=== PATIENT | male | born 1945 | race Caucasian/White ===

== ENCOUNTER 2020-04-30 11:02 | Outpatient (CLI) | payer MEDICARE, BC ==
[2020-04-30 20:52] LABS: SARS-CoV-2 PCR by NAA Not Detected (NotDetected)
== END 2020-04-30 11:03 | disposition home or self-care (01) ==
LOC: LABBT 11:02
PROVIDERS: ATTEND Otolaryngology Otolaryngic Allergy
DX: Z01.812 Encounter for preprocedural laboratory examination (principal); K21.9 Gastro-esophageal reflux disease without esophagitis; Z20.822 Contact with and (suspected) exposure to COVID-19
CPT/HCPCS: U0003; U0005; 87635

== ENCOUNTER 2020-05-03 12:54 | Outpatient (CLI) | payer MEDICARE, BC | END 2020-05-03 12:55 | disposition home or self-care (01) | LOC: RAD 12:54 | PROVIDERS: ATTEND Otolaryngology Otolaryngic Allergy | DX: K21.9 Gastro-esophageal reflux disease without esophagitis (principal); R13.10 Dysphagia, unspecified; K44.9 Diaphragmatic hernia without obstruction or gangrene | CPT/HCPCS: 74220; 74230 ==

== ENCOUNTER 2022-05-01 12:15 | Inpatient (IN) | payer MEDICARE, BC ==
[2022-05-01 12:44] LABS: #Basophils 0.1 thou/uL (0.0-0.2); #Eosinphils 0.1 thou/uL (0.0-0.7); #Lymphocytes 1.5 thou/uL (1.20-3.40); #Monocytes 0.5 thou/uL (0.11-0.59); #Neutrophils 3.6 thou/uL (1.40-6.50); %Basophils 0.9 % (0.0-1.0); %Lymphocytes 25.2 % (21.0-51.0); %Monocytes 8.6 % (0.0-10.0); %Neutrophils 63.2 % (42.0-75.0); Hemoglobin 13.9 g/dL (14.0-18.0); Mean Corpuscular HGB CONC 34.2 g/dL (32.0-36.0); Mean Corpuscular Hemoglobin 31.2 pg (27.0-31.0); Mean Corpuscular Volume 91.3 fl (78.0-98.0); Mean Platelet Volume 8.3 fL (7.4-10.4); Platelet Count 191 10x3/uL (130-400); Red Blood Cell (RBC) Count 4.46 mill/uL (4.70-6.10); White Blood Cell (WBC) Count 5.8 10x3/uL (4.8-10.8)
[2022-05-01 12:51] LABS: PTT 29.3 sec (22.9-36.1); Prothrombin Time 13.1 sec (12.0-14.7)
[2022-05-01 12:54] LABS: CK (CPK) 63 U/L (30-200); CRP (Inflammatory) Less than 0.50 mg/dL (= or < 0.5)
[2022-05-01 12:55] LABS: ALT (SGPT) 10 U/L (8-55); AST (SGOT) 13 U/L (5-34); Acetaminophen Less than 10.0 mcg/mL (10.0-30.0); Alcohol Less than 10 mg/dL (Less than 10); Alkaline Phosphatase 69 U/L (40-110); Anion Gap 16 mmol/L (10-20); BUN (Urea Nitrogen) 16 mg/dL (8.4-25.7); Bilirubin, Total 0.6 mg/dL (0.2-1.2); Calc. Creatinine Clearance 0 mL/min (70-130); Calcium 9.1 mg/dL (7.8-10.44); Carbon Dioxide 23 mmol/L (23-31); Chloride 103 mmol/L (98-107); Estimated GFR 48; Globulin 3.2 g/dL (2.4-3.5); Glucose 147 mg/dL (83-110); Potassium 4.3 mmol/L (3.5-5.1); Protein, Total 7.2 g/dL (5.8-8.1); Salicylate Less than 8.0 mg/dL (15.0-30.0); Sodium 138 mmol/L (136-145)
[2022-05-01] MEDS ORDERED: hydrALAZINE 20 MG/ML VIAL ONE (13:07)
[2022-05-01] MEDS ORDERED: Nitroglycerin 2% Ointment 1 INCH/1 GM Packet ONE (13:07)
[2022-05-01] MEDS ORDERED: HumaLOG 300 UNITS/3 ML VIAL SC PRN (14:08)
[2022-05-01] MEDS ORDERED: Dextrose 50% Abboject 50 ML SYRINGE SLOW IVP PRN (14:08)
[2022-05-01] MEDS ORDERED: Dextrose 5% in Water 1,000 ML IV PRN (14:08)
[2022-05-01] MEDS ORDERED: Aspirin 325 MG TAB ONE (14:28)
[2022-05-01 14:39] LABS: Hemoglobin A1c 7.1 % (4.0-6.0)
[2022-05-01 15:18] LABS: Bilirubin Negative (Negative); Blood, Urine Negative (Negative); Clarity Clear (Clear); Glucose, Urine (Dipstick) 70 mg/dL (Negative); Ketone, Urine Negative (Negative); Leukocyte Negative Leu/uL (Negative); Nitrite Negative (Negative); Protein, Urine (Dipstick) Negative (Neg-Trace); Specific Gravity, Urine 1.041 (1.002-1.036); Urobilinogen Normal mg/dL (Less than 2)
[2022-05-01] MEDS ORDERED: Iopamidol-370 76% 500 ML 1 ML ONE (15:18)
[2022-05-01 15:24] LABS: Amphetamine Not Detected (NotDetected); Barbiturates Screen Not Detected (NotDetected); Benzodiazepine Screen Not Detected (NotDetected); Cocaine Metabolite Screen Not Detected (NotDetected); Methadone Not Detected (NotDetected); Methamphetamine Not Detected (NotDetected); Opiate Screen Not Detected (NotDetected); Oxycodone Screen Not Detected (NotDetected); Phencyclidine (PCP) Not Detected (NotDetected); THC/Cannabinoid Screen Not Detected (NotDetected); Tricyclic Screen Not Detected (NotDetected)
[2022-05-02 05:42] LABS: #Monocytes 0.7 thou/uL (0.11-0.59); #Neutrophils 6.2 thou/uL (1.40-6.50); %Basophils 0.6 % (0.0-1.0); %Eosinophils 0.3 % (0.0-10.0); %Lymphocytes 12.3 % (21.0-51.0); %Neutrophils 77.8 % (42.0-75.0); Hemoglobin 13.2 g/dL (14.0-18.0); Mean Corpuscular HGB CONC 33.7 g/dL (32.0-36.0); Mean Corpuscular Hemoglobin 30.7 pg (27.0-31.0); Mean Corpuscular Volume 91.3 fl (78.0-98.0); Mean Platelet Volume 8.5 fL (7.4-10.4); Platelet Count 200 10x3/uL (130-400); Red Blood Cell (RBC) Count 4.28 mill/uL (4.70-6.10)
[2022-05-02 06:03] LABS: Anion Gap 16 mmol/L (10-20); BUN (Urea Nitrogen) 16 mg/dL (8.4-25.7); Calc. Creatinine Clearance 0 mL/min (70-130); Calcium 9.2 mg/dL (7.8-10.44); Carbon Dioxide 19 mmol/L (23-31); Cardiac Risk 6.2 (Less than 4.5); Chloride 104 mmol/L (98-107); Cholesterol 223 mg/dl (< 200 Desired); Estimated GFR 63; Glucose 177 mg/dL (83-110); HDL Cholesterol 36 mg/dL (>60 Neg Risk); LDL Cholesterol, Calculated 158 mg/dL; Sodium 135 mmol/L (136-145); Triglycerides 145 mg/dL (Less than 150)
[2022-05-02 07:34] LABS: SARS-CoV-2 NAA Rapid Test Not Detected (NotDetected)
[2022-05-02] MEDS ORDERED: Aspirin 81 mg Enteric Coated Tablet PO SCH (09:00)
[2022-05-02 09:35] VITALS: BMI 23.7
[2022-05-02] MEDS: Dextrose 5 % And 0.9 % NaCl 1,000 ML IV SCH (13:38)
[2022-05-02 20:07] LABS: INR-International Normal Ratio 1.1; Prothrombin Time 14.6 sec (12.0-14.7)
[2022-05-02 20:08] LABS: PTT 30.7 sec (22.9-36.1)
[2022-05-02] MEDS: Atorvastatin Calcium 40 MG TAB PO SCH (20:23)
[2022-05-03 05:36] LABS: #Eosinphils 0.1 thou/uL (0.0-0.7); #Lymphocytes 1.4 thou/uL (1.20-3.40); #Neutrophils 4.8 thou/uL (1.40-6.50); %Basophils 0.3 % (0.0-1.0); %Eosinophils 1.3 % (0.0-10.0); %Lymphocytes 19.2 % (21.0-51.0); %Monocytes 13.1 % (0.0-10.0); %Neutrophils 66.1 % (42.0-75.0); Hemoglobin 13.3 g/dL (14.0-18.0); Mean Corpuscular HGB CONC 33.8 g/dL (32.0-36.0); Mean Corpuscular Hemoglobin 30.9 pg (27.0-31.0); Mean Corpuscular Volume 91.4 fl (78.0-98.0); Mean Platelet Volume 8.4 fL (7.4-10.4); Platelet Count 194 10x3/uL (130-400); White Blood Cell (WBC) Count 7.3 10x3/uL (4.8-10.8)
[2022-05-03 05:59] LABS: Anion Gap 14 mmol/L (10-20); BUN (Urea Nitrogen) 16 mg/dL (8.4-25.7); Calc. Creatinine Clearance 52 mL/min (70-130); Calcium 8.8 mg/dL (7.8-10.44); Carbon Dioxide 20 mmol/L (23-31); Chloride 107 mmol/L (98-107); Estimated GFR 70; Glucose 164 mg/dL (83-110); Sodium 137 mmol/L (136-145)
[2022-05-03] MEDS ORDERED: Aspirin 300 MG Suppository PR SCH (09:00)
[2022-05-03] MEDS: Dextrose 5 % And 0.9 % NaCl 1,000 ML IV SCH (10:12)
[2022-05-03] MEDS: HumaLOG 300 UNITS/3 ML VIAL SC PRN (11:29)
[2022-05-03] MEDS: Atorvastatin Calcium 40 MG TAB PO SCH (20:24)
[2022-05-03] MEDS: hydrALAZINE 20 MG/ML VIAL SLOW IVP PRN (21:15)
[2022-05-04] MEDS: Dextrose 5 % And 0.9 % NaCl 1,000 ML IV SCH (02:22)
[2022-05-04 05:29] LABS: #Eosinphils 0.2 thou/uL (0.0-0.7); #Lymphocytes 1.5 thou/uL (1.20-3.40); #Monocytes 0.9 thou/uL (0.11-0.59); #Neutrophils 4.5 thou/uL (1.40-6.50); %Basophils 0.5 % (0.0-1.0); %Eosinophils 2.3 % (0.0-10.0); %Lymphocytes 21.3 % (21.0-51.0); %Monocytes 12.4 % (0.0-10.0); %Neutrophils 63.5 % (42.0-75.0); Hemoglobin 13.2 g/dL (14.0-18.0); Mean Corpuscular HGB CONC 32.4 g/dL (32.0-36.0); Mean Corpuscular Volume 92.4 fl (78.0-98.0); Mean Platelet Volume 8.1 fL (7.4-10.4); Platelet Count 185 10x3/uL (130-400); RBC Distribution Width 12.1 % (11.5-14.5); Red Blood Cell (RBC) Count 4.39 mill/uL (4.70-6.10)
[2022-05-04 06:07] LABS: Anion Gap 13 mmol/L (10-20); BUN (Urea Nitrogen) 14 mg/dL (8.4-25.7); Calc. Creatinine Clearance 59 mL/min (70-130); Calcium 8.6 mg/dL (7.8-10.44); Carbon Dioxide 20 mmol/L (23-31); Chloride 109 mmol/L (98-107); Estimated GFR 80; Glucose 152 mg/dL (83-110); Potassium 3.6 mmol/L (3.5-5.1); Sodium 138 mmol/L (136-145)
[2022-05-04] MEDS: hydrALAZINE 20 MG/ML VIAL SLOW IVP PRN ×2 (08:49→18:11)
[2022-05-04] MEDS ORDERED: Aspirin 300 MG Suppository PR SCH (09:00)
[2022-05-04] MEDS ORDERED: Aspirin 81 mg Enteric Coated Tablet PER TUBE SCH (09:00)
[2022-05-04] MEDS: D5W-AA 4.25% with LYTES 1,000 ML IV SCH (12:50)
[2022-05-04] MEDS: Atorvastatin Calcium 40 MG TAB PO SCH (21:18)
[2022-05-05] MEDS: hydrALAZINE 20 MG/ML VIAL SLOW IVP PRN ×3 (04:30→16:50)
[2022-05-05 05:29] LABS: #Eosinphils 0.1 thou/uL (0.0-0.7); #Lymphocytes 0.5 thou/uL (1.20-3.40); #Monocytes 0.6 thou/uL (0.11-0.59); #Neutrophils 4.9 thou/uL (1.40-6.50); %Lymphocytes 7.7 % (21.0-51.0); %Monocytes 10.2 % (0.0-10.0); %Neutrophils 81.1 % (42.0-75.0); Hemoglobin 14.2 g/dL (14.0-18.0); Mean Corpuscular HGB CONC 33.7 g/dL (32.0-36.0); Mean Corpuscular Hemoglobin 30.6 pg (27.0-31.0); Mean Corpuscular Volume 90.9 fl (78.0-98.0); Mean Platelet Volume 8.3 fL (7.4-10.4); Platelet Count 201 10x3/uL (130-400); RBC Distribution Width 11.9 % (11.5-14.5); Red Blood Cell (RBC) Count 4.62 mill/uL (4.70-6.10)
[2022-05-05 05:49] LABS: Anion Gap 14 mmol/L (10-20); BUN (Urea Nitrogen) 18 mg/dL (8.4-25.7); Calc. Creatinine Clearance 61 mL/min (70-130); Calcium 9.1 mg/dL (7.8-10.44); Carbon Dioxide 21 mmol/L (23-31); Chloride 105 mmol/L (98-107); Estimated GFR 85; Glucose 182 mg/dL (83-110); Potassium 3.7 mmol/L (3.5-5.1); Sodium 136 mmol/L (136-145)
[2022-05-05] MEDS: D5W-AA 4.25% with LYTES 1,000 ML IV SCH (09:37)
[2022-05-05] MEDS: Aspirin Chewable 81 MG TAB PER TUBE SCH (09:53)
[2022-05-05] MEDS ORDERED: cloNIDine 0.1mg/24 Hour PATCH TD SCH (11:22)
[2022-05-05] MEDS: HumaLOG 300 UNITS/3 ML VIAL SC PRN ×2 (12:27→18:04)
[2022-05-05 13:46] LABS: DRVVT Confirm 33.5; HEX PHOS LA Tube 1 42.9 SEC; HEX PHOS LA Tube 2 38.1 SEC; Hexagonal Phospholipid Neut 4.8 SEC (0-8.0)
[2022-05-05] MEDS ORDERED: Labetalol HCl 100 MG/20 ML VIAL SLOW IVP SCH (20:00)
[2022-05-05] MEDS: Acetaminophen 650 MG Suppository PR PRN (20:00)
[2022-05-05] MEDS: Atorvastatin Calcium 40 MG TAB PO SCH (20:20)
[2022-05-05] MEDS ORDERED: Scopolamine 1.5 mg/72 hour Patch TD PRN (20:43)
[2022-05-06] MEDS ORDERED: Labetalol HCl 100 MG/20 ML VIAL SLOW IVP SCH (00:15)
[2022-05-06] MEDS: Acetaminophen 650 MG Suppository PR PRN (04:45)
[2022-05-06] MEDS: D5W-AA 4.25% with LYTES 1,000 ML IV SCH (06:05)
[2022-05-06 06:29] LABS: #Lymphocytes 0.3 thou/uL (1.20-3.40); #Monocytes 0.6 thou/uL (0.11-0.59); #Neutrophils 3.2 thou/uL (1.40-6.50); %Eosinophils 0.2 % (0.0-10.0); %Lymphocytes 8.2 % (21.0-51.0); %Monocytes 13.8 % (0.0-10.0); %Neutrophils 77.9 % (42.0-75.0); Hemoglobin 13.2 g/dL (14.0-18.0); Mean Corpuscular HGB CONC 33.2 g/dL (32.0-36.0); Mean Corpuscular Hemoglobin 30.3 pg (27.0-31.0); Mean Corpuscular Volume 91.3 fl (78.0-98.0); Mean Platelet Volume 8.2 fL (7.4-10.4); Platelet Count 189 10x3/uL (130-400); RBC Distribution Width 11.9 % (11.5-14.5); Red Blood Cell (RBC) Count 4.35 mill/uL (4.70-6.10); White Blood Cell (WBC) Count 4.1 10x3/uL (4.8-10.8)
[2022-05-06 06:50] LABS: Anion Gap 14 mmol/L (10-20); BUN (Urea Nitrogen) 23 mg/dL (8.4-25.7); Calc. Creatinine Clearance 57 mL/min (70-130); Calcium 8.7 mg/dL (7.8-10.44); Carbon Dioxide 20 mmol/L (23-31); Chloride 103 mmol/L (98-107); Estimated GFR 77; Glucose 189 mg/dL (83-110); Potassium 3.8 mmol/L (3.5-5.1); Sodium 133 mmol/L (136-145)
[2022-05-06] MEDS: Aspirin Chewable 81 MG TAB PER TUBE SCH (08:49)
[2022-05-06] MEDS ORDERED: Aspirin 300 MG Suppository PR SCH (09:00)
[2022-05-06] MEDS: HumaLOG 300 UNITS/3 ML VIAL SC PRN (12:00)
[2022-05-06] MEDS: metroNIDAZOLE 500 MG in Premix Bag 1 BAG IVPB SCH ×2 (14:05→22:14)
[2022-05-06 14:52] LABS: Cardiolipin IgA Ab 6.6 APL-U/mL (<14 Negative); Cardiolipin IgG Ab 2.5 GPL-U/mL (<10 Negative); Cardiolipin IgM Ab 1.1 MPL-U/mL (<10 Negative); EliA APS New Method **** NEW METHOD ****; beta-2-Glycoprotein I IgA Ab 4.3 U/mL (<7 Negative); beta-2-Glycoprotein I IgG Ab 1.4 U/mL (<7 Negative)
[2022-05-06 14:55] LABS: beta-2-Glycoprotein I IgM Abs Less than 2.4 U/mL (<7 Negative)
[2022-05-06] MEDS: Atorvastatin Calcium 40 MG TAB PO SCH (22:12)
[2022-05-07] MEDS: D5W-AA 4.25% with LYTES 1,000 ML IV SCH (03:41)
[2022-05-07] MEDS: metroNIDAZOLE 500 MG in Premix Bag 1 BAG IVPB SCH ×3 (06:01→20:53)
[2022-05-07] MEDS ORDERED: Ketamine 50 MG/ML (10ML VIAL) ONE (09:25)
[2022-05-07] MEDS ORDERED: CEFAZOLIN 2 GM VIAL ONE (09:34)
[2022-05-07] MEDS ORDERED: Sodium Chloride 0.9% 100 ML ONE (09:34)
[2022-05-07] MEDS ORDERED: PROPOFOL 200 MG/20 ML VIAL ONE (09:45)
[2022-05-07] MEDS: Aspirin Chewable 81 MG TAB PER TUBE SCH (10:52)
[2022-05-07] MEDS ORDERED: Amlodipine 5 MG TAB PO SCH (17:00)
[2022-05-07] MEDS: Atorvastatin Calcium 40 MG TAB PO SCH (20:53)
[2022-05-08] MEDS: metroNIDAZOLE 500 MG in Premix Bag 1 BAG IVPB SCH ×3 (04:57→21:04)
[2022-05-08 05:59] LABS: #Eosinphils 0.1 thou/uL (0.0-0.7); #Lymphocytes 0.9 thou/uL (1.20-3.40); #Monocytes 0.6 thou/uL (0.11-0.59); %Basophils 0.3 % (0.0-1.0); %Eosinophils 2.1 % (0.0-10.0); %Lymphocytes 19.7 % (21.0-51.0); %Monocytes 13.5 % (0.0-10.0); %Neutrophils 64.5 % (42.0-75.0); Hemoglobin 12.5 g/dL (14.0-18.0); Mean Corpuscular HGB CONC 33.1 g/dL (32.0-36.0); Mean Corpuscular Hemoglobin 30.7 pg (27.0-31.0); Mean Corpuscular Volume 92.7 fl (78.0-98.0); Mean Platelet Volume 8.6 fL (7.4-10.4); Platelet Count 175 10x3/uL (130-400); RBC Distribution Width 11.9 % (11.5-14.5); Red Blood Cell (RBC) Count 4.08 mill/uL (4.70-6.10); White Blood Cell (WBC) Count 4.6 10x3/uL (4.8-10.8)
[2022-05-08 06:27] LABS: Anion Gap 13 mmol/L (10-20); BUN (Urea Nitrogen) 28 mg/dL (8.4-25.7); Calc. Creatinine Clearance 59 mL/min (70-130); Calcium 8.5 mg/dL (7.8-10.44); Carbon Dioxide 21 mmol/L (23-31); Chloride 103 mmol/L (98-107); Estimated GFR 80; Glucose 154 mg/dL (83-110); Potassium 3.9 mmol/L (3.5-5.1); Sodium 133 mmol/L (136-145)
[2022-05-08] MEDS: Lansoprazole 15 MG/5 ML (BATCHED)UDCUP PO SCH (08:53)
[2022-05-08] MEDS: Amlodipine 5 MG TAB PO SCH (08:53)
[2022-05-08] MEDS: Aspirin Chewable 81 MG TAB PER TUBE SCH (08:54)
[2022-05-08] MEDS: Finasteride 5 MG TAB PO SCH (08:54)
[2022-05-08] MEDS ORDERED: Lansoprazole 15 MG/5 ML (BATCHED)UDCUP PER TUBE SCH (09:00)
[2022-05-08] MEDS ORDERED: Tamsulosin HCl 0.4 MG CAP PO SCH (09:00)
[2022-05-08] MEDS: Atorvastatin Calcium 40 MG TAB PO SCH (20:31)
[2022-05-09] MEDS: metroNIDAZOLE 500 MG in Premix Bag 1 BAG IVPB SCH ×3 (05:10→21:15)
[2022-05-09] MEDS: HumaLOG 300 UNITS/3 ML VIAL SC PRN ×3 (06:21→18:33)
[2022-05-09] MEDS: Amlodipine 5 MG TAB PO SCH (09:06)
[2022-05-09] MEDS: Finasteride 5 MG TAB PO SCH (09:06)
[2022-05-09] MEDS: Aspirin Chewable 81 MG TAB PER TUBE SCH (09:06)
[2022-05-09] MEDS: Lansoprazole 15 MG/5 ML (BATCHED)UDCUP PO SCH (09:06)
[2022-05-09] MEDS: Atorvastatin Calcium 40 MG TAB PO SCH (21:15)
[2022-05-10] MEDS: metroNIDAZOLE 500 MG in Premix Bag 1 BAG IVPB SCH ×3 (05:10→21:42)
[2022-05-10] MEDS: HumaLOG 300 UNITS/3 ML VIAL SC PRN ×3 (06:14→18:22)
[2022-05-10] MEDS: Finasteride 5 MG TAB PO SCH (09:29)
[2022-05-10] MEDS: Aspirin Chewable 81 MG TAB PER TUBE SCH (09:29)
[2022-05-10] MEDS: Amlodipine 5 MG TAB PO SCH (09:29)
[2022-05-10] MEDS: Lansoprazole 15 MG/5 ML (BATCHED)UDCUP PO SCH (09:33)
[2022-05-10] MEDS: Atorvastatin Calcium 40 MG TAB PO SCH (21:42)
[2022-05-11] MEDS: metroNIDAZOLE 500 MG in Premix Bag 1 BAG IVPB SCH ×2 (06:37→14:56)
[2022-05-11] MEDS: HumaLOG 300 UNITS/3 ML VIAL SC PRN ×3 (06:38→18:27)
[2022-05-11] MEDS: Aspirin Chewable 81 MG TAB PER TUBE SCH (10:03)
[2022-05-11] MEDS: Finasteride 5 MG TAB PO SCH (10:03)
[2022-05-11] MEDS: Amlodipine 5 MG TAB PO SCH (10:03)
[2022-05-11] MEDS: Lansoprazole 15 MG/5 ML (BATCHED)UDCUP PO SCH (10:03)
[2022-05-11 15:54] VITALS: BP 145/76; TEMP 97
== END 2022-05-11 19:29 | DRG 64 ==
LOC: ERS 12:15 → ERHOLD 13:44 → NEURO 20:15
PROVIDERS: ADMIT Hospitalist; ATTEND Hospitalist
PROC: 0DB78ZX Excision of Stomach, Pylorus, Via Natural or Artificial Opening Endoscopic, Diagnostic (ICD-10-PCS; principal; 2022-05-07)
PROC: 0DH63UZ Insertion of Feeding Device into Stomach, Percutaneous Approach (ICD-10-PCS; 2022-05-07)
DX: I63.512 Cerebral infarction due to unspecified occlusion or stenosis of left middle cerebral artery (principal); R29.712 NIHSS score 12; U07.1 COVID-19; J69.0 Pneumonitis due to inhalation of food and vomit; G81.91 Hemiplegia, unspecified affecting right dominant side; I69.354 Hemiplegia and hemiparesis following cerebral infarction affecting left non-dominant side; R47.01 Aphasia; R13.12 Dysphagia, oropharyngeal phase; K44.9 Diaphragmatic hernia without obstruction or gangrene; K20.90 Esophagitis, unspecified without bleeding; K29.70 Gastritis, unspecified, without bleeding; E78.5 Hyperlipidemia, unspecified; E11.9 Type 2 diabetes mellitus without complications; I10 Essential (primary) hypertension; R29.810 Facial weakness; R47.81 Slurred speech; R47.1 Dysarthria and anarthria; Z91.14 Patient's other noncompliance with medication regimen; Z88.1 Allergy status to other antibiotic agents; Z88.2 Allergy status to sulfonamides; Z88.8 Allergy status to other drugs, medicaments and biological substances; Z83.3 Family history of diabetes mellitus; Z82.49 Family history of ischemic heart disease and other diseases of the circulatory system; Z98.890 Other specified postprocedural states; Z79.899 Other long term (current) drug therapy; Z79.82 Long term (current) use of aspirin
CPT/HCPCS: 36415; 36416; 70450; 70496; 70498; 70551; 71045; 74230; 80048; 80053; 80061; 80306; 80307; 81003; 81240; 81241; 82550; 83036; 83605; 84443; 84484; 85025; 85240; 85250; 85300; 85303; 85305; 85598; 85610; 85613; 85730; 86140; 86146; 86147; 87811; 88305; 88342; 93005; 93306; 94760; 96374; J0360; J1815; J1956; J2704; J3490; J7042; Q9967; U0003; U0005

== ENCOUNTER 2022-06-05 11:39 | Emergency (ER) | payer MEDICARE, BC ==
[2022-06-05 13:29] LABS: #Basophils 0.1 thou/uL (0.0-0.2); #Eosinphils 0.2 thou/uL (0.0-0.7); #Monocytes 0.8 thou/uL (0.11-0.59); #Neutrophils 4.7 thou/uL (1.40-6.50); %Basophils 1.3 % (0.0-1.0); %Eosinophils 2.9 % (0.0-10.0); %Lymphocytes 25.6 % (21.0-51.0); %Monocytes 9.8 % (0.0-10.0); %Neutrophils 60.5 % (42.0-75.0); Mean Corpuscular HGB CONC 34.2 g/dL (32.0-36.0); Mean Corpuscular Hemoglobin 31.5 pg (27.0-31.0); Mean Platelet Volume 7.6 fL (7.4-10.4); Platelet Count 184 10x3/uL (130-400); RBC Distribution Width 13.3 % (11.5-14.5); Red Blood Cell (RBC) Count 3.81 mill/uL (4.70-6.10); White Blood Cell (WBC) Count 7.8 10x3/uL (4.8-10.8)
[2022-06-05 14:08] LABS: ALT (SGPT) 14 U/L (8-55); AST (SGOT) 21 U/L (5-34); Albumin 3.8 g/dL (3.4-4.8); Alkaline Phosphatase 59 U/L (40-110); Anion Gap 19 mmol/L (10-20); BUN (Urea Nitrogen) 25 mg/dL (8.4-25.7); Bilirubin, Total 0.5 mg/dL (0.2-1.2); Calc. Creatinine Clearance 0 mL/min (70-130); Calcium 9.2 mg/dL (7.8-10.44); Carbon Dioxide 18 mmol/L (23-31); Chloride 100 mmol/L (98-107); Estimated GFR 88; Globulin 3.6 g/dL (2.4-3.5); Glucose 117 mg/dL (83-110); Lipase 34 U/L (8-78); Potassium 4.9 mmol/L (3.5-5.1); Protein, Total 7.4 g/dL (5.8-8.1); Sodium 132 mmol/L (136-145)
== END 2022-06-05 15:11 | disposition home or self-care (01) ==
LOC: ERS 11:39
DX: K59.00 Constipation, unspecified (principal); E11.9 Type 2 diabetes mellitus without complications; E78.00 Pure hypercholesterolemia, unspecified; I10 Essential (primary) hypertension
CPT/HCPCS: 36415; 74019; 80053; 83690; 85025; 96360

== ENCOUNTER 2022-08-02 12:46 | Inpatient (IN) | payer MEDICARE, BC ==
[~2022-08-02 12:46] MED LIST: Iopamidol-370 76% 500 ML MDV (1 ML CHARGE) ONE
[2022-08-02 13:11] LABS: #Basophils 0.1 thou/uL (0.0-0.2); #Lymphocytes 1.8 thou/uL (1.20-3.40); #Monocytes 0.9 thou/uL (0.11-0.59); #Neutrophils 4.1 thou/uL (1.40-6.50); %Basophils 0.7 % (0.0-1.0); %Eosinophils 22.5 % (0.0-10.0); %Lymphocytes 20.7 % (21.0-51.0); %Monocytes 10.3 % (0.0-10.0); %Neutrophils 45.8 % (42.0-75.0); Hemoglobin 12.3 g/dL (14.0-18.0); Mean Corpuscular HGB CONC 34.7 g/dL (32.0-36.0); Mean Corpuscular Hemoglobin 32.4 pg (27.0-31.0); Mean Corpuscular Volume 93.4 fl (78.0-98.0); Mean Platelet Volume 8.3 fL (7.4-10.4); Platelet Count 237 10x3/uL (130-400); RBC Distribution Width 13.5 % (11.5-14.5); Red Blood Cell (RBC) Count 3.79 mill/uL (4.70-6.10); White Blood Cell (WBC) Count 8.9 10x3/uL (4.8-10.8)
[2022-08-02 13:23] LABS: Prothrombin Time 13.4 sec (12.0-14.7)
[2022-08-02 13:32] LABS: ALT (SGPT) 10 U/L (8-55); AST (SGOT) 13 U/L (5-34); Albumin 3.9 g/dL (3.4-4.8); Alkaline Phosphatase 83 U/L (40-110); Anion Gap 19 mmol/L (10-20); BUN (Urea Nitrogen) 13 mg/dL (8.4-25.7); Bilirubin, Total 0.6 mg/dL (0.2-1.2); CK (CPK) 46 U/L (30-200); Calc. Creatinine Clearance 0 mL/min (70-130); Calcium 9.4 mg/dL (7.8-10.44); Carbon Dioxide 22 mmol/L (23-31); Chloride 102 mmol/L (98-107); Estimated GFR 88; Globulin 3.4 g/dL (2.4-3.5); Glucose 147 mg/dL (83-110); Potassium 4.1 mmol/L (3.5-5.1); Protein, Total 7.3 g/dL (5.8-8.1); Sodium 139 mmol/L (136-145)
[2022-08-02] MEDS ORDERED: Aspirin Chewable 81 MG TAB ONE (13:45)
[2022-08-02] MEDS ORDERED: Insulin Regular 300 UNITS/3 ML VIAL SC PRN (14:38)
[2022-08-02] MEDS ORDERED: hydrALAZINE 20 MG/ML VIAL SLOW IVP PRN (14:38)
[2022-08-02] MEDS ORDERED: Dextrose 50% Abboject 50 ML SYRINGE SLOW IVP PRN (14:44)
[2022-08-02] MEDS ORDERED: Dextrose 5% in Water 1,000 ML IV PRN (14:44)
[2022-08-02] MEDS ORDERED: Clopidogrel Bisulfate 300 MG TAB PO SCH (14:45)
[2022-08-02] MEDS ORDERED: Clopidogrel Bisulfate 300 MG TAB ONE (16:40)
[2022-08-02 19:44] LABS: Bilirubin Negative (Negative); Blood, Urine Negative (Negative); Clarity Clear (Clear); Glucose, Urine (Dipstick) Normal (Negative); Ketone, Urine Negative (Negative); Leukocyte Negative Leu/uL (Negative); Nitrite Negative (Negative); Protein, Urine (Dipstick) Negative (Neg-Trace); Urobilinogen Normal mg/dL (Less than 2)
[2022-08-02 19:46] LABS: Specific Gravity, Urine Greater than 1.060 (1.002-1.036)
[2022-08-02] MEDS: Ipratropium Bromide 0.06% Nasal Inhaler 15ml EA NARE SCH ×2 (23:17→23:18)
[2022-08-02] MEDS: Atorvastatin Calcium 40 MG TAB PO SCH (23:17)
[2022-08-02] MEDS: Carvedilol 6.25 MG TAB PO SCH (23:18)
[2022-08-03 05:45] LABS: #Basophils 0.1 thou/uL (0.0-0.2); #Lymphocytes 1.8 thou/uL (1.20-3.40); #Monocytes 0.8 thou/uL (0.11-0.59); #Neutrophils 3.4 thou/uL (1.40-6.50); %Basophils 0.7 % (0.0-1.0); %Eosinophils 24.7 % (0.0-10.0); %Lymphocytes 22.1 % (21.0-51.0); %Monocytes 9.5 % (0.0-10.0); %Neutrophils 42.9 % (42.0-75.0); Hemoglobin 11.5 g/dL (14.0-18.0); Mean Corpuscular HGB CONC 35.5 g/dL (32.0-36.0); Mean Corpuscular Hemoglobin 32.9 pg (27.0-31.0); Mean Corpuscular Volume 92.7 fl (78.0-98.0); Platelet Count 204 10x3/uL (130-400); RBC Distribution Width 13.3 % (11.5-14.5); Red Blood Cell (RBC) Count 3.51 mill/uL (4.70-6.10); White Blood Cell (WBC) Count 7.9 10x3/uL (4.8-10.8)
[2022-08-03 05:55] LABS: Anion Gap 15 mmol/L (10-20); BUN (Urea Nitrogen) 11 mg/dL (8.4-25.7); Calc. Creatinine Clearance 67 mL/min (70-130); Carbon Dioxide 26 mmol/L (23-31); Cardiac Risk 6.2 (Less than 4.5); Chloride 102 mmol/L (98-107); Cholesterol 130 mg/dl (< 200 Desired); Estimated GFR 89; Glucose 144 mg/dL (83-110); HDL Cholesterol 21 mg/dL (>60 Neg Risk); LDL Cholesterol, Calculated 77 mg/dL; Potassium 3.6 mmol/L (3.5-5.1); Sodium 139 mmol/L (136-145); Triglycerides 158 mg/dL (Less than 150)
[2022-08-03] MEDS ORDERED: Sodium Chloride 0.9% 1,000 ML IV SCH (11:00)
[2022-08-03] MEDS: Carvedilol 6.25 MG TAB PO SCH ×2 (15:57→22:00)
[2022-08-03] MEDS: Aspirin 81 mg Enteric Coated Tablet PO SCH (16:09)
[2022-08-03] MEDS: Clopidogrel Bisulfate 75 MG TAB PO SCH (16:09)
[2022-08-03] MEDS: Finasteride 5 MG TAB PO SCH (16:10)
[2022-08-03] MEDS: Tamsulosin HCl 0.4 MG CAP PO SCH (16:10)
[2022-08-03] MEDS: Oxybutynin ER 5 MG TAB PO SCH (18:56)
[2022-08-03] MEDS: Atorvastatin Calcium 40 MG TAB PO SCH (22:00)
[2022-08-03] MEDS: Ipratropium Bromide 0.06% Nasal Inhaler 15ml EA NARE SCH (22:00)
[2022-08-04 05:21] LABS: Hemoglobin 12.1 g/dL (14.0-18.0); Mean Corpuscular HGB CONC 34.1 g/dL (32.0-36.0); Mean Corpuscular Hemoglobin 31.4 pg (27.0-31.0); Mean Corpuscular Volume 92.1 fl (78.0-98.0); Mean Platelet Volume 7.7 fL (7.4-10.4); Platelet Count 221 10x3/uL (130-400); RBC Distribution Width 13.1 % (11.5-14.5); Red Blood Cell (RBC) Count 3.85 mill/uL (4.70-6.10); White Blood Cell (WBC) Count 7.5 10x3/uL (4.8-10.8)
[2022-08-04 05:39] LABS: ALT (SGPT) 8 U/L (8-55); AST (SGOT) 12 U/L (5-34); Albumin 3.6 g/dL (3.4-4.8); Alkaline Phosphatase 77 U/L (40-110); Anion Gap 16 mmol/L (10-20); BUN (Urea Nitrogen) 8 mg/dL (8.4-25.7); Bilirubin, Total 0.8 mg/dL (0.2-1.2); Calc. Creatinine Clearance 70 mL/min (70-130); Carbon Dioxide 23 mmol/L (23-31); Chloride 103 mmol/L (98-107); Estimated GFR 90; Glucose 161 mg/dL (83-110); Potassium 3.7 mmol/L (3.5-5.1); Protein, Total 6.6 g/dL (5.8-8.1); Sodium 138 mmol/L (136-145)
[2022-08-04] MEDS: Clopidogrel Bisulfate 75 MG TAB PO SCH ×2 (09:40→15:27)
[2022-08-04] MEDS: Oxybutynin ER 5 MG TAB PO SCH (15:27)
[2022-08-04] MEDS: Finasteride 5 MG TAB PO SCH (15:27)
[2022-08-04] MEDS: Carvedilol 6.25 MG TAB PO SCH ×2 (15:28→22:07)
[2022-08-04] MEDS: Aspirin 81 mg Enteric Coated Tablet PO SCH (15:28)
[2022-08-04] MEDS: Ipratropium Bromide 0.06% Nasal Inhaler 15ml EA NARE SCH ×3 (15:29→22:07)
[2022-08-04] MEDS: Tamsulosin HCl 0.4 MG CAP PO SCH (15:30)
[2022-08-04] MEDS: Atorvastatin Calcium 40 MG TAB PO SCH (22:06)
[2022-08-05 02:29] VITALS: BMI 23.0
[2022-08-05 05:45] LABS: Hemoglobin 12.9 g/dL (14.0-18.0); Mean Corpuscular HGB CONC 34.3 g/dL (32.0-36.0); Mean Corpuscular Hemoglobin 31.5 pg (27.0-31.0); Mean Corpuscular Volume 91.9 fl (78.0-98.0); Mean Platelet Volume 7.8 fL (7.4-10.4); Platelet Count 250 10x3/uL (130-400); RBC Distribution Width 13.1 % (11.5-14.5); White Blood Cell (WBC) Count 7.9 10x3/uL (4.8-10.8)
[2022-08-05 06:02] LABS: Albumin 3.6 g/dL (3.4-4.8); Alkaline Phosphatase 83 U/L (40-110); Anion Gap 15 mmol/L (10-20); BUN (Urea Nitrogen) 9 mg/dL (8.4-25.7); Bilirubin, Total 0.7 mg/dL (0.2-1.2); Calc. Creatinine Clearance 65 mL/min (70-130); Calcium 9.1 mg/dL (7.8-10.44); Carbon Dioxide 23 mmol/L (23-31); Chloride 103 mmol/L (98-107); Estimated GFR 88; Globulin 3.3 g/dL (2.4-3.5); Glucose 157 mg/dL (83-110); Potassium 3.8 mmol/L (3.5-5.1); Protein, Total 6.9 g/dL (5.8-8.1); Sodium 137 mmol/L (136-145)
[2022-08-05 06:03] LABS: ALT (SGPT) 8 U/L (8-55); AST (SGOT) 12 U/L (5-34)
[2022-08-05] MEDS ORDERED: Lidocaine 1% PF 5 ML VIAL ONE ×2 (08:30→08:31)
[2022-08-05] MEDS: Ipratropium Bromide 0.06% Nasal Inhaler 15ml EA NARE SCH (08:43)
[2022-08-05] MEDS: Carvedilol 6.25 MG TAB PO SCH (08:44)
[2022-08-05] MEDS: Aspirin 81 mg Enteric Coated Tablet PO SCH (08:44)
[2022-08-05] MEDS: Clopidogrel Bisulfate 75 MG TAB PO SCH (08:44)
[2022-08-05] MEDS: Finasteride 5 MG TAB PO SCH (08:44)
[2022-08-05] MEDS: Oxybutynin ER 5 MG TAB PO SCH (08:44)
[2022-08-05] MEDS: Tamsulosin HCl 0.4 MG CAP PO SCH (08:45)
[2022-08-05 16:14] VITALS: BP 176/89; TEMP 97.3
== END 2022-08-05 17:00 | disposition home or self-care (01) | DRG 41 ==
LOC: ERS 12:46 → ERHOLD 16:06 → NEURO 21:03 → OBSVTOIN 08-03 16:15
PROVIDERS: ADMIT Hospitalist; ATTEND Hospitalist
PROC: 0JH632Z Insertion of Monitoring Device into Chest Subcutaneous Tissue and Fascia, Percutaneous Approach (ICD-10-PCS; principal; 2022-08-05)
DX: I63.9 Cerebral infarction, unspecified (principal); I69.354 Hemiplegia and hemiparesis following cerebral infarction affecting left non-dominant side; R29.706 NIHSS score 6; E78.5 Hyperlipidemia, unspecified; I10 Essential (primary) hypertension; E11.65 Type 2 diabetes mellitus with hyperglycemia; R13.10 Dysphagia, unspecified; N40.0 Benign prostatic hyperplasia without lower urinary tract symptoms; Z93.1 Gastrostomy status; Z88.1 Allergy status to other antibiotic agents; Z88.2 Allergy status to sulfonamides; Z88.8 Allergy status to other drugs, medicaments and biological substances; Z79.899 Other long term (current) drug therapy; Z79.82 Long term (current) use of aspirin; Z79.84 Long term (current) use of oral hypoglycemic drugs
CPT/HCPCS: 33285; 36415; 36416; 70450; 70496; 70498; 70551; 71045; 74230; 80048; 80053; 80061; 81003; 82550; 84443; 84484; 85025; 85027; 93005; 94760; 95712; 95819; 95957; C1764; J1650; J7050; Q9967

== ENCOUNTER 2022-10-01 08:45 | Observation (INO) | payer MEDICARE, BC ==
[2022-10-01 09:25] LABS: #Eosinphils 0.3 thou/uL (0.0-0.7); #Monocytes 1.1 thou/uL (0.11-0.59); #Neutrophils 10.3 thou/uL (1.40-6.50); %Basophils 0.3 % (0.0-1.0); %Eosinophils 2.4 % (0.0-10.0); %Lymphocytes 5.8 % (21.0-51.0); %Monocytes 8.9 % (0.0-10.0); %Neutrophils 82.1 % (42.0-75.0); Hemoglobin 12.6 g/dL (14.0-18.0); Mean Corpuscular HGB CONC 32.6 g/dL (32.0-36.0); Mean Corpuscular Hemoglobin 29.7 pg (27.0-31.0); Mean Platelet Volume 10.6 fL (7.4-10.4); Platelet Count 159 10x3/uL (130-400); RBC Distribution Width 14.6 % (11.5-14.5); Red Blood Cell (RBC) Count 4.24 mill/uL (4.70-6.10); White Blood Cell (WBC) Count 12.6 10x3/uL (4.8-10.8)
[2022-10-01 09:38] LABS: Prothrombin Time 13.3 sec (12.0-14.7)
[2022-10-01 09:57] LABS: ALT (SGPT) 15 U/L (8-55); AST (SGOT) 20 U/L (5-34); Albumin 4.1 g/dL (3.4-4.8); Alkaline Phosphatase 73 U/L (40-110); Anion Gap 18 mmol/L (10-20); BUN (Urea Nitrogen) 24 mg/dL (8.4-25.7); Bilirubin, Total 0.7 mg/dL (0.2-1.2); Calc. Creatinine Clearance 0 mL/min (70-130); Calcium 9.7 mg/dL (7.8-10.44); Carbon Dioxide 24 mmol/L (23-31); Chloride 97 mmol/L (98-107); Estimated GFR 81; Globulin 3.5 g/dL (2.4-3.5); Glucose 171 mg/dL (83-110); Potassium 4.2 mmol/L (3.5-5.1); Protein, Total 7.6 g/dL (5.8-8.1); Sodium 135 mmol/L (136-145)
[2022-10-01] MEDS ORDERED: Glucagon 1 MG/ML KIT IM PRN (11:05)
[2022-10-01] MEDS ORDERED: Insulin Regular 300 UNITS/3 ML VIAL SC PRN ×2 (11:05)
[2022-10-01] MEDS ORDERED: Dextrose 5% in Water 1,000 ML IV PRN (11:05)
[2022-10-01] MEDS ORDERED: Dextrose 50% Abboject 50 ML SYRINGE SLOW IVP PRN (11:05)
[2022-10-01] MEDS ORDERED: hydrALAZINE 20 MG/ML VIAL SLOW IVP PRN (11:07)
[2022-10-01] MEDS ORDERED: Aspirin 81 mg Enteric Coated Tablet PO SCH (11:30)
[2022-10-01] MEDS ORDERED: Polyethylene Glycol 3350 17 GM Packet PO PRN (11:50)
[2022-10-01 12:07] LABS: Hemoglobin A1c 6.1 % (4.0-6.0)
[2022-10-01 12:24] LABS: Bacteria/HPF None Seen HPF (None Seen); Bilirubin Negative (Negative); Blood, Urine Negative (Negative); CAUTI Indications for Culture Alt mental st,lethar; Clarity Clear (Clear); Glucose, Urine (Dipstick) Normal (Negative); Ketone, Urine Trace mg/dL (Negative); Leukocyte Negative Leu/uL (Negative); Nitrite Negative (Negative); Protein, Urine (Dipstick) 20 mg/dL (Neg-Trace); Squamous Epithelial None Seen HPF (0-3); WBC/HPF 0-3 HPF (0-3); pH, Urine 7.5 (5.0-9.0)
[2022-10-01 12:26] LABS: Specific Gravity, Urine 1.053 (1.002-1.036)
[2022-10-01 12:28] LABS: Urine Culture Reflex No No
[2022-10-01] MEDS ORDERED: Iopamidol-370 76% 500 ML MDV (1 ML CHARGE) ONE (13:14)
[2022-10-01] MEDS ORDERED: Carvedilol 6.25 MG TAB PO SCH (17:00)
[2022-10-01 17:42] VITALS: BMI 21.5
[2022-10-01] MEDS ORDERED: Aspirin 300 MG Suppository PR SCH (20:30)
[2022-10-01] MEDS ORDERED: Tamsulosin HCl 0.4 MG CAP PO SCH (21:00)
[2022-10-01] MEDS ORDERED: Atorvastatin Calcium 40 MG TAB PO SCH (21:00)
[2022-10-01] MEDS: Heparin 5,000 UNITS/ML VIAL SC SCH (21:02)
[2022-10-02 05:31] LABS: #Basophils 0.1 thou/uL (0.0-0.2); #Eosinphils 0.7 thou/uL (0.0-0.7); #Monocytes 0.7 thou/uL (0.11-0.59); #Neutrophils 6.5 thou/uL (1.40-6.50); %Basophils 0.6 % (0.0-1.0); %Eosinophils 6.7 % (0.0-10.0); %Lymphocytes 17.5 % (21.0-51.0); %Monocytes 7.2 % (0.0-10.0); %Neutrophils 67.6 % (42.0-75.0); Hemoglobin 11.6 g/dL (14.0-18.0); Mean Corpuscular Hemoglobin 29.9 pg (27.0-31.0); Mean Corpuscular Volume 90.7 fl (78.0-98.0); Mean Platelet Volume 10.8 fL (7.4-10.4); Platelet Count 159 10x3/uL (130-400); RBC Distribution Width 14.9 % (11.5-14.5); Red Blood Cell (RBC) Count 3.88 mill/uL (4.70-6.10); White Blood Cell (WBC) Count 9.6 10x3/uL (4.8-10.8)
[2022-10-02 05:59] LABS: ALT (SGPT) 11 U/L (8-55); AST (SGOT) 12 U/L (5-34); Albumin 3.5 g/dL (3.4-4.8); Alkaline Phosphatase 60 U/L (40-110); Anion Gap 12 mmol/L (10-20); BUN (Urea Nitrogen) 17 mg/dL (8.4-25.7); Bilirubin, Total 0.8 mg/dL (0.2-1.2); Calc. Creatinine Clearance 61 mL/min (70-130); Carbon Dioxide 27 mmol/L (23-31); Chloride 100 mmol/L (98-107); Cholesterol 145 mg/dl (< 200 Desired); Estimated GFR 89; Glucose 125 mg/dL (83-110); HDL Cholesterol 29 mg/dL (>60 Neg Risk); LDL Cholesterol, Calculated 88 mg/dL; Potassium 3.7 mmol/L (3.5-5.1); Protein, Total 6.5 g/dL (5.8-8.1); Sodium 135 mmol/L (136-145); Triglycerides 141 mg/dL (Less than 150)
[2022-10-02] MEDS: Heparin 5,000 UNITS/ML VIAL SC SCH (08:24)
[2022-10-02] MEDS ORDERED: NIFEdipine XL 30 MG TAB PO SCH (09:00)
[2022-10-02] MEDS ORDERED: Finasteride 5 MG TAB PO SCH (09:00)
[2022-10-02] MEDS ORDERED: Aspirin 300 MG Suppository PR SCH (09:00)
[2022-10-02] MEDS ORDERED: Famotidine/PF 20 mg/2ml Vial SLOW IVP SCH (09:00)
[2022-10-02] MEDS ORDERED: Aspirin 81 mg Enteric Coated Tablet PO SCH (09:00)
[2022-10-02 13:01] VITALS: TEMP 97.5
[2022-10-02 15:59] VITALS: BP 142/76
== END 2022-10-02 19:15 | disposition home or self-care (01) ==
LOC: ERS 08:45 → SUATTDRO 08:45 → ERHOLD 11:00 → 2SE 17:15
PROVIDERS: ADMIT Internal Medicine; ATTEND Internal Medicine
DX: R41.82 Altered mental status, unspecified (principal); R53.1 Weakness; E11.9 Type 2 diabetes mellitus without complications; N40.0 Benign prostatic hyperplasia without lower urinary tract symptoms; I10 Essential (primary) hypertension; K59.00 Constipation, unspecified; R60.0 Localized edema; Z86.73 Personal history of transient ischemic attack (TIA), and cerebral infarction without residual deficits; Z88.0 Allergy status to penicillin; Z88.2 Allergy status to sulfonamides; Z88.8 Allergy status to other drugs, medicaments and biological substances; Z88.1 Allergy status to other antibiotic agents; Z79.82 Long term (current) use of aspirin; Z79.899 Other long term (current) drug therapy; Z79.4 Long term (current) use of insulin
CPT/HCPCS: 70450; 70496; 70498; 70551; 71045; 74176; 80053 ×2; 80061; 81001; 82962 ×2; 83036; 83605; 84484; 85025 ×2; 85610; 85730; 87040; 93005; 93306; 94760; 96372; 97116 ×2; 97530; 99285; G0378 ×3; 36415; 36416; J1644; Q9967

== ENCOUNTER 2022-10-26 15:33 | Inpatient (IN) | payer MEDICARE, BC ==
[2022-10-26 16:35] LABS: #Basophils 0.1 thou/uL (0.0-0.2); #Eosinphils 1.3 thou/uL (0.0-0.7); #Monocytes 0.6 thou/uL (0.11-0.59); #Neutrophils 3.3 thou/uL (1.40-6.50); %Basophils 0.8 % (0.0-1.0); %Eosinophils 17.9 % (0.0-10.0); %Lymphocytes 28.2 % (21.0-51.0); %Neutrophils 44.7 % (42.0-75.0); Mean Corpuscular HGB CONC 31.8 g/dL (32.0-36.0); Mean Corpuscular Hemoglobin 29.6 pg (27.0-31.0); Mean Corpuscular Volume 93.3 fl (78.0-98.0); Mean Platelet Volume 9.9 fL (7.4-10.4); Platelet Count 214 10x3/uL (130-400); RBC Distribution Width 15.7 % (11.5-14.5); Red Blood Cell (RBC) Count 3.71 mill/uL (4.70-6.10); White Blood Cell (WBC) Count 7.4 10x3/uL (4.8-10.8)
[2022-10-26 16:59] LABS: ALT (SGPT) 10 U/L (8-55); AST (SGOT) 12 U/L (5-34); Albumin 3.9 g/dL (3.4-4.8); Alkaline Phosphatase 60 U/L (40-110); Anion Gap 16 mmol/L (10-20); BUN (Urea Nitrogen) 19 mg/dL (8.4-25.7); Bilirubin, Total 0.4 mg/dL (0.2-1.2); Calc. Creatinine Clearance 0 mL/min (70-130); Calcium 9.2 mg/dL (7.8-10.44); Carbon Dioxide 24 mmol/L (23-31); Chloride 100 mmol/L (98-107); Estimated GFR 61; Glucose 108 mg/dL (83-110); Potassium 4.4 mmol/L (3.5-5.1); Protein, Total 6.9 g/dL (5.8-8.1); Sodium 136 mmol/L (136-145)
[2022-10-26 17:43] LABS: SARS-CoV-2 NAA Rapid Test Not Detected (NotDetected)
[2022-10-26] MEDS ORDERED: Cefepime 2 GM VIAL ONE (18:19)
[2022-10-26] MEDS ORDERED: LevoFLOXacin 500 mg/D5W 100 ML BAG ONE ×3 (18:36→18:38)
[2022-10-26] MEDS ORDERED: Vancomycin 1 GM/200 ML (FROZEN) BAG ONE (18:36)
[2022-10-26] MEDS ORDERED: Ondansetron PF 4 MG/2 ML Vial IVP PRN ×2 (19:00→20:20)
[2022-10-26] MEDS ORDERED: Sodium Chloride 0.9% 1,000 ML IV SCH ×3 (19:00→22:00)
[2022-10-26] MEDS ORDERED: Ondansetron ODT 4 MG TAB PO PRN ×2 (19:00→20:20)
[2022-10-26] MEDS ORDERED: Acetaminophen 325 MG TAB PO PRN ×2 (19:00→20:20)
[2022-10-26] MEDS ORDERED: Acetaminophen 650 MG Suppository PR PRN ×2 (19:00→20:20)
[2022-10-26] MEDS ORDERED: LevoFLOXacin 750 mg/D5W 750 MG in Premix Bag 1 BAG IVPB SCH (19:00)
[2022-10-26] MEDS ORDERED: Polyethylene Glycol 3350 17 GM Packet PO PRN ×2 (19:09→20:21)
[2022-10-26] MEDS ORDERED: Bisacodyl 5 MG TAB PO PRN (20:25)
[2022-10-26] MEDS ORDERED: Senokot S 8.6-50 MG TAB PO PRN (20:25)
[2022-10-26] MEDS ORDERED: Vancomycin HCl 1 GM in Sodium Chloride 0.9% 250 ML 300 ML IVPB SCH (21:00)
[2022-10-26] MEDS ORDERED: Atorvastatin Calcium 40 MG TAB PO SCH (21:00)
[2022-10-26] MEDS ORDERED: Tamsulosin HCl 0.4 MG CAP PO SCH (21:00)
[2022-10-26 21:03] LABS: Lactic Acid 3.5 mmol/L (0.5-2.2)
[2022-10-26 21:10] LABS: Troponin I Less than 0.010 ng/mL (< 0.028)
[2022-10-26] MEDS: Atorvastatin Calcium 40 MG TAB PO SCH (21:54)
[2022-10-26] MEDS: Tamsulosin HCl 0.4 MG CAP PO SCH (21:54)
[2022-10-26] MEDS ORDERED: Cefepime 2 GM in Sodium Chloride 0.9% 100 ML IVPB SCH (22:00)
[2022-10-26 22:26] VITALS: BMI 23.3
[2022-10-26] MEDS ORDERED: hydrALAZINE 20 MG/ML VIAL SLOW IVP SCH (22:30)
[2022-10-26] MEDS ORDERED: LevoFLOXacin 250 mg/D5W 250 MG in Premix Bag 1 BAG IVPB SCH (23:30)
[2022-10-26 23:49] LABS: Magnesium 1.4 mg/dL (1.6-2.6)
[2022-10-27] MEDS ORDERED: Magnesium 2 GM/50 ML(in water) 2 GM in Premix Bag 1 BAG IVPB SCH ×2 (01:30→15:00)
[2022-10-27 02:17] LABS: Lactic Acid 0.9 mmol/L (0.5-2.2)
[2022-10-27] MEDS: Cefepime 2 GM in Sodium Chloride 0.9% 100 ML IVPB SCH ×2 (05:50→18:29)
[2022-10-27] MEDS: NIFEdipine XL 30 MG TAB PO SCH (08:55)
[2022-10-27] MEDS: Clopidogrel Bisulfate 75 MG TAB PO SCH (08:56)
[2022-10-27] MEDS: Aspirin 81 mg Enteric Coated Tablet PO SCH (08:56)
[2022-10-27] MEDS: Finasteride 5 MG TAB PO SCH (08:56)
[2022-10-27] MEDS ORDERED: Finasteride 5 MG TAB PO SCH (09:00)
[2022-10-27] MEDS ORDERED: Aspirin 81 mg Enteric Coated Tablet PO SCH (09:00)
[2022-10-27] MEDS ORDERED: Clopidogrel Bisulfate 75 MG TAB PO SCH (09:00)
[2022-10-27] MEDS ORDERED: NIFEdipine XL 30 MG TAB PO SCH (09:00)
[2022-10-27] MEDS ORDERED: VANCOMYCIN 1.25 GM/250 ML BAG 1.25 GM in Premix Bag 1 BAG IVPB SCH (14:00)
[2022-10-27] MEDS: Atorvastatin Calcium 40 MG TAB PO SCH (20:39)
[2022-10-27] MEDS: Tamsulosin HCl 0.4 MG CAP PO SCH (20:39)
[2022-10-28] MEDS: Cefepime 2 GM in Sodium Chloride 0.9% 100 ML IVPB SCH ×2 (06:13→18:00)
[2022-10-28 06:37] LABS: #Eosinphils 0.7 thou/uL (0.0-0.7); #Monocytes 0.6 thou/uL (0.11-0.59); #Neutrophils 3.6 thou/uL (1.40-6.50); %Basophils 0.6 % (0.0-1.0); %Lymphocytes 24.7 % (21.0-51.0); %Monocytes 9.7 % (0.0-10.0); %Neutrophils 54.7 % (42.0-75.0); Hemoglobin 11.9 g/dL (14.0-18.0); Mean Corpuscular HGB CONC 33.1 g/dL (32.0-36.0); Mean Corpuscular Hemoglobin 30.2 pg (27.0-31.0); Mean Corpuscular Volume 91.4 fl (78.0-98.0); Mean Platelet Volume 9.4 fL (7.4-10.4); Platelet Count 184 10x3/uL (130-400); RBC Distribution Width 15.7 % (11.5-14.5); Red Blood Cell (RBC) Count 3.94 mill/uL (4.70-6.10); White Blood Cell (WBC) Count 6.5 10x3/uL (4.8-10.8)
[2022-10-28 06:54] LABS: Anion Gap 12 mmol/L (10-20); BUN (Urea Nitrogen) 11 mg/dL (8.4-25.7); Calc. Creatinine Clearance 62 mL/min (70-130); Calcium 8.7 mg/dL (7.8-10.44); Carbon Dioxide 25 mmol/L (23-31); Chloride 101 mmol/L (98-107); Estimated GFR 87; Glucose 147 mg/dL (83-110); Sodium 134 mmol/L (136-145)
[2022-10-28] MEDS: NIFEdipine XL 30 MG TAB PO SCH (09:21)
[2022-10-28] MEDS: Aspirin 81 mg Enteric Coated Tablet PO SCH (09:21)
[2022-10-28] MEDS: Finasteride 5 MG TAB PO SCH (09:21)
[2022-10-28] MEDS: Clopidogrel Bisulfate 75 MG TAB PO SCH (09:21)
[2022-10-28 13:41] LABS: Vancomycin, Trough 8.5 ug/mL
[2022-10-28] MEDS ORDERED: LevoFLOXacin 750 mg/D5W 750 MG in Premix Bag 1 BAG IVPB SCH (20:00)
[2022-10-28] MEDS: Tamsulosin HCl 0.4 MG CAP PO SCH (20:27)
[2022-10-28] MEDS: Atorvastatin Calcium 40 MG TAB PO SCH (20:27)
[2022-10-29] MEDS: Cefepime 2 GM in Sodium Chloride 0.9% 100 ML IVPB SCH (06:21)
[2022-10-29 08:10] VITALS: BP 159/79; TEMP 97.3
[2022-10-29] MEDS: NIFEdipine XL 30 MG TAB PO SCH (09:14)
[2022-10-29] MEDS: Aspirin 81 mg Enteric Coated Tablet PO SCH (09:14)
[2022-10-29] MEDS: Finasteride 5 MG TAB PO SCH (09:14)
[2022-10-29] MEDS: Clopidogrel Bisulfate 75 MG TAB PO SCH (09:14)
== END 2022-10-29 10:55 | disposition home or self-care (01) | DRG 871 ==
LOC: ERS 15:33 → 2SW 18:35 → ERS 19:58 → 2SW 19:58 → OBSVTOIN 10-27 01:13
PROVIDERS: ADMIT Internal Medicine; ATTEND Hospitalist
DX: A41.9 Sepsis, unspecified organism (principal); I50.33 Acute on chronic diastolic (congestive) heart failure; J18.9 Pneumonia, unspecified organism; I69.351 Hemiplegia and hemiparesis following cerebral infarction affecting right dominant side; K22.10 Ulcer of esophagus without bleeding; I11.0 Hypertensive heart disease with heart failure; I69.391 Dysphagia following cerebral infarction; E11.9 Type 2 diabetes mellitus without complications; R13.10 Dysphagia, unspecified; D64.9 Anemia, unspecified; Z20.822 Contact with and (suspected) exposure to COVID-19; K44.9 Diaphragmatic hernia without obstruction or gangrene; E83.42 Hypomagnesemia; R53.81 Other malaise; Z98.890 Other specified postprocedural states; Z93.1 Gastrostomy status; Z88.1 Allergy status to other antibiotic agents; Z88.2 Allergy status to sulfonamides; Z88.8 Allergy status to other drugs, medicaments and biological substances; Z79.82 Long term (current) use of aspirin; Z79.899 Other long term (current) drug therapy; Z98.49 Cataract extraction status, unspecified eye; Z82.49 Family history of ischemic heart disease and other diseases of the circulatory system; Z83.3 Family history of diabetes mellitus; Z87.891 Personal history of nicotine dependence
CPT/HCPCS: 36415; 36416; 71045; 80048; 80053; 80202; 83605; 83735; 83880; 84145; 84484; 85025; 87040; 87081; 93005; 96365; 96367; 96368; 96375; 96376; G0378; J0360; J0692; J1956; J3370; J3370-JW; J3475; J3490; J7050

== ENCOUNTER 2022-11-03 15:06 | Outpatient (CLI) | payer MEDICARE, BC | END 2022-11-03 15:07 | disposition home or self-care (01) | LOC: SCSRAD 15:06 | PROVIDERS: ATTEND Family Medicine | DX: J69.0 Pneumonitis due to inhalation of food and vomit (principal) | CPT/HCPCS: 36415; 71046; 82607; 82728; 83540; 83550; 85025 ==

== ENCOUNTER 2022-11-27 12:26 | Inpatient (IN) | payer MEDICARE, BC ==
[2022-11-27 14:03] LABS: #Eosinphils 0.3 thou/uL (0.0-0.7); #Monocytes 0.7 thou/uL (0.11-0.59); #Neutrophils 4.5 thou/uL (1.40-6.50); %Basophils 0.4 % (0.0-1.0); %Eosinophils 3.7 % (0.0-10.0); %Lymphocytes 26.1 % (21.0-51.0); %Neutrophils 60.3 % (42.0-75.0); Hematocrit 34.1 % (42.0-52.0); Hemoglobin 11.2 g/dL (14.0-18.0); Mean Corpuscular HGB CONC 32.8 g/dL (32.0-36.0); Mean Corpuscular Hemoglobin 29.9 pg (27.0-31.0); Mean Corpuscular Volume 90.9 fl (78.0-98.0); Platelet Count 247 10x3/uL (130-400); RBC Distribution Width 16.1 % (11.5-14.5); Red Blood Cell (RBC) Count 3.75 mill/uL (4.70-6.10); White Blood Cell (WBC) Count 7.5 10x3/uL (4.8-10.8)
[2022-11-27 14:20] LABS: Troponin I Less than 0.010 ng/mL (< 0.028)
[2022-11-27 14:21] LABS: ALT (SGPT) 14 U/L (8-55); AST (SGOT) 13 U/L (5-34); Albumin 4.3 g/dL (3.4-4.8); Alkaline Phosphatase 44 U/L (40-110); Anion Gap 23 mmol/L (10-20); BUN (Urea Nitrogen) 23 mg/dL (8.4-25.7); Bilirubin, Total 0.5 mg/dL (0.2-1.2); Calc. Creatinine Clearance 0 mL/min (70-130); Calcium 9.8 mg/dL (7.8-10.44); Carbon Dioxide 16 mmol/L (23-31); Chloride 99 mmol/L (98-107); Estimated GFR 52; Glucose 98 mg/dL (83-110); Potassium 4.9 mmol/L (3.5-5.1); Protein, Total 7.3 g/dL (5.8-8.1); Sodium 133 mmol/L (136-145)
[2022-11-27 14:30] LABS: SARS-CoV-2 NAA Rapid Test Not Detected (NotDetected)
[2022-11-27] MEDS ORDERED: Cefepime 2 GM VIAL ONE (14:55)
[2022-11-27] MEDS ORDERED: Vancomycin 1.5 GRAM/300 ML BAG 1.5 GM in Premix Bag 1 BAG IVPB SCH (15:00)
[2022-11-27] MEDS ORDERED: Calcium Carbonate 500 MG ChewTAB PO PRN (15:17)
[2022-11-27] MEDS ORDERED: Acetaminophen 325 MG TAB PO PRN (15:17)
[2022-11-27] MEDS ORDERED: Senokot S 8.6-50 MG TAB PO PRN (15:17)
[2022-11-27] MEDS ORDERED: Ondansetron ODT 4 MG TAB PO PRN (15:17)
[2022-11-27] MEDS ORDERED: Ondansetron PF 4 MG/2 ML Vial IVP PRN (15:17)
[2022-11-27] MEDS ORDERED: Dextrose 5% in Water 1,000 ML IV PRN (15:18)
[2022-11-27] MEDS ORDERED: Glucagon 1 MG/ML KIT IM PRN (15:18)
[2022-11-27] MEDS ORDERED: Dextrose 50% Abboject 50 ML SYRINGE SLOW IVP PRN (15:18)
[2022-11-27] MEDS ORDERED: HumaLOG 300 UNITS/3 ML VIAL SC PRN ×2 (15:18)
[2022-11-27] MEDS ORDERED: Ipratropium/Albuterol 3 ML NEB NEB PRN (15:19)
[2022-11-27] MEDS ORDERED: Benzonatate 100 MG CAP PO PRN (15:20)
[2022-11-27] MEDS ORDERED: Sodium Chloride 0.9% 1,000 ML IV SCH ×2 (15:30→18:00)
[2022-11-27] MEDS ORDERED: Oseltamivir 75 MG CAP PO SCH (15:30)
[2022-11-27 16:15] VITALS: BMI 22.8
[2022-11-27 17:25] LABS: Lactic Acid 6.2 mmol/L (0.5-2.2)
[2022-11-27 17:37] LABS: Bacteria/HPF None Seen HPF (None Seen); Bilirubin Negative (Negative); Blood, Urine Negative (Negative); CAUTI Indications for Culture Immunosuppressed; Clarity Clear (Clear); Glucose, Urine (Dipstick) Normal (Negative); Ketone, Urine Negative (Negative); Leukocyte Negative Leu/uL (Negative); Nitrite Negative (Negative); Protein, Urine (Dipstick) Negative (Neg-Trace); RBC/HPF 0-3 HPF (0-3); Specific Gravity, Urine 1.016 (1.002-1.036); Squamous Epithelial None Seen HPF (0-3); Urobilinogen Normal mg/dL (Less than 2); WBC/HPF 0-3 HPF (0-3); pH, Urine 5.5 (5.0-9.0)
[2022-11-27 17:39] LABS: Urine Culture Reflex Yes Yes
[2022-11-27 17:49] LABS: Troponin I Less than 0.010 ng/mL (< 0.028)
[2022-11-27] MEDS: Sodium Chloride 0.9% 1,000 ML IV SCH (18:21)
[2022-11-27] MEDS: Carvedilol 6.25 MG TAB PO SCH (20:56)
[2022-11-27] MEDS: Atorvastatin Calcium 40 MG TAB PO SCH (20:56)
[2022-11-27] MEDS: Tamsulosin HCl 0.4 MG CAP PO SCH (20:56)
[2022-11-27] MEDS ORDERED: Oseltamivir 6 MG/ML ORAL SUSP PO SCH (21:00)
[2022-11-27 22:42] LABS: Troponin I Less than 0.010 ng/mL (< 0.028)
[2022-11-28 01:33] LABS: Lactic Acid 3.1 mmol/L (0.5-2.2)
[2022-11-28 03:50] LABS: #Eosinphils 0.2 thou/uL (0.0-0.7); #Monocytes 0.5 thou/uL (0.11-0.59); #Neutrophils 3.5 thou/uL (1.40-6.50); %Basophils 0.5 % (0.0-1.0); %Eosinophils 3.6 % (0.0-10.0); %Lymphocytes 26.3 % (21.0-51.0); %Monocytes 8.6 % (0.0-10.0); %Neutrophils 60.7 % (42.0-75.0); Hematocrit 31.3 % (42.0-52.0); Hemoglobin 10.6 g/dL (14.0-18.0); Mean Corpuscular HGB CONC 33.9 g/dL (32.0-36.0); Mean Corpuscular Hemoglobin 29.9 pg (27.0-31.0); Mean Corpuscular Volume 88.4 fl (78.0-98.0); Mean Platelet Volume 9.6 fL (7.4-10.4); Platelet Count 194 10x3/uL (130-400); Red Blood Cell (RBC) Count 3.54 mill/uL (4.70-6.10); White Blood Cell (WBC) Count 5.8 10x3/uL (4.8-10.8)
[2022-11-28 04:12] LABS: Lactic Acid 2.1 mmol/L (0.5-2.2)
[2022-11-28 04:13] LABS: ALT (SGPT) 9 U/L (8-55); AST (SGOT) 13 U/L (5-34); Albumin 3.3 g/dL (3.4-4.8); Alkaline Phosphatase 37 U/L (40-110); Anion Gap 15 mmol/L (10-20); BUN (Urea Nitrogen) 17 mg/dL (8.4-25.7); Bilirubin, Total 0.5 mg/dL (0.2-1.2); Calc. Creatinine Clearance 59 mL/min (70-130); Calcium 8.6 mg/dL (7.8-10.44); Carbon Dioxide 17 mmol/L (23-31); Chloride 104 mmol/L (98-107); Estimated GFR 84; Globulin 2.7 g/dL (2.4-3.5); Glucose 111 mg/dL (83-110); Potassium 4.3 mmol/L (3.5-5.1); Sodium 132 mmol/L (136-145)
[2022-11-28 04:35] LABS: Vitamin D, 25 Hydroxy 19.7 ng/ml (> 30.0)
[2022-11-28] MEDS: Sodium Chloride 0.9% 1,000 ML IV SCH ×2 (04:55→13:22)
[2022-11-28] MEDS: Carvedilol 6.25 MG TAB PO SCH ×2 (10:05→20:37)
[2022-11-28] MEDS: NIFEdipine XL 30 MG TAB PO SCH (10:05)
[2022-11-28] MEDS: Finasteride 5 MG TAB PO SCH (10:07)
[2022-11-28] MEDS: Aspirin 81 mg Enteric Coated Tablet PO SCH (10:07)
[2022-11-28] MEDS: Clopidogrel Bisulfate 75 MG TAB PO SCH (10:07)
[2022-11-28] MEDS: Oseltamivir 6 MG/ML ORAL SUSP PO SCH ×2 (13:22→20:37)
[2022-11-28] MEDS: Atorvastatin Calcium 40 MG TAB PO SCH (20:30)
[2022-11-28] MEDS: Tamsulosin HCl 0.4 MG CAP PO SCH (20:30)
[2022-11-29 06:45] LABS: #Eosinphils 0.2 thou/uL (0.0-0.7); #Monocytes 0.6 thou/uL (0.11-0.59); #Neutrophils 3.7 thou/uL (1.40-6.50); %Basophils 0.5 % (0.0-1.0); %Eosinophils 3.7 % (0.0-10.0); %Lymphocytes 26.6 % (21.0-51.0); %Monocytes 9.3 % (0.0-10.0); %Neutrophils 59.4 % (42.0-75.0); Hematocrit 34.3 % (42.0-52.0); Hemoglobin 11.3 g/dL (14.0-18.0); Mean Corpuscular HGB CONC 32.9 g/dL (32.0-36.0); Mean Corpuscular Hemoglobin 29.7 pg (27.0-31.0); Mean Platelet Volume 9.8 fL (7.4-10.4); Platelet Count 203 10x3/uL (130-400); Red Blood Cell (RBC) Count 3.81 mill/uL (4.70-6.10); White Blood Cell (WBC) Count 6.3 10x3/uL (4.8-10.8)
[2022-11-29 07:04] LABS: Anion Gap 15 mmol/L (10-20); BUN (Urea Nitrogen) 13 mg/dL (8.4-25.7); Calc. Creatinine Clearance 57 mL/min (70-130); Calcium 8.8 mg/dL (7.8-10.44); Carbon Dioxide 20 mmol/L (23-31); Chloride 102 mmol/L (98-107); Estimated GFR 81; Glucose 128 mg/dL (83-110); Magnesium 1.5 mg/dL (1.6-2.6); Potassium 3.8 mmol/L (3.5-5.1); Sodium 133 mmol/L (136-145)
[2022-11-29] MEDS ORDERED: Sodium Chloride 0.9% 1,000 ML IV SCH (10:00)
[2022-11-29] MEDS ORDERED: Magnesium Sulfate 3 GM in Sodium Chloride 0.9% 100 ML IVPB SCH (10:00)
[2022-11-29] MEDS: Aspirin 81 mg Enteric Coated Tablet PO SCH (10:03)
[2022-11-29] MEDS: NIFEdipine XL 30 MG TAB PO SCH (10:04)
[2022-11-29] MEDS: Carvedilol 6.25 MG TAB PO SCH ×2 (10:04→20:57)
[2022-11-29] MEDS: Finasteride 5 MG TAB PO SCH (10:04)
[2022-11-29] MEDS: Clopidogrel Bisulfate 75 MG TAB PO SCH (10:04)
[2022-11-29] MEDS: Oseltamivir 6 MG/ML ORAL SUSP PO SCH ×2 (10:14→20:58)
[2022-11-29] MEDS: Sodium Chloride 0.9% 1,000 ML IV SCH ×2 (10:19→23:30)
[2022-11-29] MEDS: Atorvastatin Calcium 40 MG TAB PO SCH (20:57)
[2022-11-29] MEDS: Tamsulosin HCl 0.4 MG CAP PO SCH (20:57)
[2022-11-30 06:54] LABS: Anion Gap 11 mmol/L (10-20); BUN (Urea Nitrogen) 12 mg/dL (8.4-25.7); Calc. Creatinine Clearance 54 mL/min (70-130); Calcium 8.4 mg/dL (7.8-10.44); Carbon Dioxide 19 mmol/L (23-31); Chloride 105 mmol/L (98-107); Estimated GFR 76; Glucose 123 mg/dL (83-110); Potassium 3.9 mmol/L (3.5-5.1); Sodium 131 mmol/L (136-145)
[2022-11-30] MEDS: Carvedilol 6.25 MG TAB PO SCH ×2 (09:15→21:00)
[2022-11-30] MEDS: Aspirin 81 mg Enteric Coated Tablet PO SCH (09:15)
[2022-11-30] MEDS: NIFEdipine XL 30 MG TAB PO SCH (09:15)
[2022-11-30] MEDS: Finasteride 5 MG TAB PO SCH (09:15)
[2022-11-30] MEDS: Clopidogrel Bisulfate 75 MG TAB PO SCH (09:15)
[2022-11-30] MEDS: Oseltamivir 6 MG/ML ORAL SUSP PO SCH ×2 (10:31→21:49)
[2022-11-30] MEDS: Sodium Chloride 0.9% 1,000 ML IV SCH (14:29)
[2022-11-30] MEDS: Tamsulosin HCl 0.4 MG CAP PO SCH (21:49)
[2022-11-30] MEDS: Atorvastatin Calcium 40 MG TAB PO SCH (21:49)
[2022-12-01] MEDS: Sodium Chloride 0.9% 1,000 ML IV SCH (00:46)
[2022-12-01 07:15] LABS: Anion Gap 11 mmol/L (10-20); BUN (Urea Nitrogen) 11 mg/dL (8.4-25.7); Calc. Creatinine Clearance 58 mL/min (70-130); Calcium 8.2 mg/dL (7.8-10.44); Carbon Dioxide 18 mmol/L (23-31); Chloride 106 mmol/L (98-107); Estimated GFR 82; Glucose 129 mg/dL (83-110); Magnesium 1.9 mg/dL (1.6-2.6); Potassium 3.9 mmol/L (3.5-5.1); Sodium 131 mmol/L (136-145)
[2022-12-01] MEDS: Finasteride 5 MG TAB PO SCH (08:59)
[2022-12-01] MEDS: Aspirin 81 mg Enteric Coated Tablet PO SCH (08:59)
[2022-12-01] MEDS: Clopidogrel Bisulfate 75 MG TAB PO SCH (08:59)
[2022-12-01] MEDS: Oseltamivir 6 MG/ML ORAL SUSP PO SCH ×2 (09:00→21:09)
[2022-12-01] MEDS: Carvedilol 6.25 MG TAB PO SCH ×2 (09:03→21:08)
[2022-12-01] MEDS: NIFEdipine XL 30 MG TAB PO SCH (09:03)
[2022-12-01] MEDS: Tamsulosin HCl 0.4 MG CAP PO SCH (21:08)
[2022-12-01] MEDS: Atorvastatin Calcium 40 MG TAB PO SCH (21:09)
[2022-12-02] MEDS: Aspirin 81 mg Enteric Coated Tablet PO SCH (08:52)
[2022-12-02] MEDS: NIFEdipine XL 30 MG TAB PO SCH (08:52)
[2022-12-02] MEDS: Clopidogrel Bisulfate 75 MG TAB PO SCH (08:53)
[2022-12-02] MEDS: Finasteride 5 MG TAB PO SCH (08:53)
[2022-12-02] MEDS: Carvedilol 6.25 MG TAB PO SCH (08:53)
[2022-12-02] MEDS: Oseltamivir 6 MG/ML ORAL SUSP PO SCH (08:54)
[2022-12-02] MEDS ORDERED: Magnesium 2 GM/50 ML(in water) 2 GM in Premix Bag 1 BAG IVPB SCH (10:30)
[2022-12-02 12:48] VITALS: TEMP 98
[2022-12-02 18:25] VITALS: BP 161/87
== END 2022-12-02 18:19 | DRG 683 ==
LOC: ERS 12:26 → ERHOLD 15:21 → IMCU/EMU 22:54 → T4-A 11-29 04:58
PROVIDERS: ADMIT Internal Medicine; ATTEND Internal Medicine
DX: N17.9 Acute kidney failure, unspecified (principal); E87.1 Hypo-osmolality and hyponatremia; I50.32 Chronic diastolic (congestive) heart failure; E87.20 Acidosis, unspecified; I13.0 Hypertensive heart and chronic kidney disease with heart failure and stage 1 through stage 4 chronic kidney disease, or unspecified chronic kidney disease; J11.1 Influenza due to unidentified influenza virus with other respiratory manifestations; E86.0 Dehydration; N18.9 Chronic kidney disease, unspecified; Z20.822 Contact with and (suspected) exposure to COVID-19; D63.1 Anemia in chronic kidney disease; E11.22 Type 2 diabetes mellitus with diabetic chronic kidney disease; E78.5 Hyperlipidemia, unspecified; E78.00 Pure hypercholesterolemia, unspecified; R62.7 Adult failure to thrive; E86.9 Volume depletion, unspecified; N40.0 Benign prostatic hyperplasia without lower urinary tract symptoms; J44.9 Chronic obstructive pulmonary disease, unspecified; Z88.1 Allergy status to other antibiotic agents; Z88.8 Allergy status to other drugs, medicaments and biological substances; Z88.2 Allergy status to sulfonamides; Z79.899 Other long term (current) drug therapy; I69.398 Other sequelae of cerebral infarction; Z68.22 Body mass index [BMI] 22.0-22.9, adult; Z79.84 Long term (current) use of oral hypoglycemic drugs; Z79.82 Long term (current) use of aspirin
CPT/HCPCS: 36415; 36416; 71045; 80048; 80053; 81001; 82306; 82607; 83605; 83735; 84145; 84484; 85025; 87040; 87086; 96361; 96365; 96366; 96367; J0692; J1650; J3370; J3475; J3490; J7050